=== PATIENT | male | born 1960 | race Caucasian/White ===

== ENCOUNTER 2022-05-03 08:25 | Outpatient (CLI) | payer OTHER, SELFPAY ==
--- NOTE | ~2022-05-03 | US_ITS ---
EXAMINATION: US retroperitoneal duplex ltd DATE: 05/03/2022 09:36 INDICATION: Malignant hypertension TECHNIQUE: Multiple grayscale, color Doppler, and pulsed Doppler images of the kidneys and renal pete aamir were obtained. COMPARISON: None. FINDINGS: The aorta peak systolic velocity is 92 cm/s. There is normal renal contour and echogenicity bilateral ly. The right kidney measures 11.9 x 6.9 x 6.7 cm and the left 1.6 x 6.0 x 5.5 cm. There are no foca l renal lesions identified. There is no hydronephrosis. The right renal artery peak systolic [place] is 201 cm/s in the proximal segment, 182 cm/s in the mid segment, and 121 cm/s in the distal seg ment. The left renal artery peak systolic velocity is 178 cm/s in the proximal segment, 126 cm/s in t he mid segment, and 92 cm/s in the distal segment. IMPRESSION: 1. Elevated peak systolic velocities proximal right renal artery consistent with >50-60% stenosis. P roximal left renal artery borderline for >50-60% stenosis. Reviewed, dictated and finalized at location B. IMPRESSION: 1. Elevated peak systolic velocities proximal right renal artery consistent wi th >50-60% stenosis. Proximal left renal artery borderline for >50-60% stenosis .
== END 2022-05-03 08:26 | disposition home or self-care (01) ==
PROVIDERS: PCP Family Medicine; Visit Provider Internal Medicine Nephrology
DX: I10 Essential (primary) hypertension (principal)
CPT/HCPCS: 93976

== ENCOUNTER → 2023-05-05 16:09 | Outpatient (CLI) | payer MEDICARE, SELFPAY ==
--- NOTE | ~2023-05-05 | XR_ITS ---
EXAM: XR shoulder RT min 2V DATE: 05/05/2023 17:08 HISTORY: M25.511 - Pain in right shoulder . COMPARISON: None available. FINDINGS: Normal mineralization. Old posterior lateral right eighth rib fracture. No acute fracture or dislocation. No lytic or blastic lesion. Mild degenerative change at the glenohumeral joint. Moder ate degenerative change at the AC joint. Amorphous calcification over the biceps anchor. Minimal acro mial tip enthesopathy. No erosion or periosteal change. Soft tissues within normal limits. IMPRESSION: Polyarticular osteoarthritis of the right shoulder. Calcific tendinitis of the biceps anc hor. Reviewed, dictated and finalized at location K. IMPRESSION: Polyarticular osteoarthritis of the right shoulder. Calcific tendin itis of the biceps anchor.
== END ==
PROVIDERS: PCP Family Medicine; Visit Provider Family Medicine
DX: M25.511 Pain in right shoulder (principal); M15.9 Polyosteoarthritis, unspecified; M75.21 Bicipital tendinitis, right shoulder
CPT/HCPCS: 73030

== ENCOUNTER 2023-09-01 00:27 | Day surgery (SDC) | payer OTHER, SELFPAY ==
[2023-08-20 08:45] VITALS: BMI 22.7
--- NOTE | 2023-08-29 09:03 | SUR.PREOP ---
Patient called regarding upcoming procedure. Reviewed preop instructions, appointment times, and procedure prep.
--- NOTE | 2023-08-29 09:08 | SUR.PREOP ---
Patient called regarding upcoming procedure. Reviewed preop instructions, appointment times, and procedure prep. Patient voiced concerns regards his new insurance covering procedure. 906 Called GI doctor's office spoke with Roxana regarding patient's concerns with his [employer] insurance company covering his procedure. Roxana verified with me that they approved his procedure thru [employer] [id number] Called patient back and informed him of my conversation with Roxana. Patient voiced understanding and no other concerns voiced.
--- NOTE | 2023-08-31 10:36 | PM.HPGS ---
History of Present Illness History of Present Illness Consent: Risks, benefits, and alternatives have been discussed and questions answered. Patient agrees to proceed with procedure. Chief complaint: hx of colon polyps Narrative: Gene Whitney is a 63 year old male Was referred for colon cancer screening. He has a history of polyps. Review of Systems Review of Systems: All systems reviewed & are unremarkable except as noted in HPI and below PMFSH Past Medical History Medical History Controlled diabetes mellitus History of colon polyps HLD (hyperlipidemia) HTN (hypertension), benign Smoking history Surgical History Surgical History S/P right knee arthroscopy Family History Family History Mother Breast cancer Father Heart disease Social History Social History Smoking packs per day: 2.5 Smoking cigarettes per day: 50.0 Years smoked: 25 Smoking pack-years: 62.50 Smoking status: Current every day smoker Tobacco type: cigars Second hand tobacco smoke exposure: Yes Smoking end date: 04/19/15 Alcohol intake: current Drinks per week: 12 Alcohol use details: beer Substance use: never Substance use type: does not use Living arrangements: alone Occupation/Education: retired Gender identity (if verbalized by the patient): Male Sexual Orientation (if Verbalized by the Patient): Straight or Heterosexual Spiritual care concerns: No Meds Home Medications and Allergies Home Medications Medication Instructions Recorded Confirmed Type omega-3 fatty acids 1,000 mg 3,000 mg PO DAILY 12/07/19 09/01/23 History capsule (Fish Oil Concentrate) amlodipine 5 mg tablet 5 mg PO DAILY #90 tabs 04/15/23 09/01/23 Rx carvedilol 12.5 mg tablet 12.5 mg PO Q12H #180 tabs 04/15/23 09/01/23 Rx gabapentin 300 mg capsule 300 mg PO QHS #90 caps 04/15/23 09/01/23 Rx glimepiride 1 mg tablet 1 mg PO QAM #90 tabs 04/15/23 09/01/23 Rx hydrochlorothiazide 25 mg tablet 25 mg PO DAILY #90 tabs 04/15/23 09/01/23 Rx rosuvastatin 40 mg tablet 40 mg PO DAILY #90 tabs 04/15/23 09/01/23 Rx aspirin 81 mg tablet 81 mg PO DAILY 08/20/23 09/01/23 History lisinopril 20 mg tablet 20 mg PO BID 08/20/23 09/01/23 History Allergies Allergy/AdvReac Type Severity Reaction Status Date / Time metformin AdvReac Intermediate itchy Verified 09/01/23 06:20 Exam Const: General: alert Orientation/consciousness: patient oriented x3 Resp: Auscultation: clear to auscultation bilaterally Cardio: Rhythm: regular rhythm GI: GI Palp: Yes Soft to palpation and No Tenderness to palpation present (GI) Neuro: General: patient oriented x3 Assessment and Plan Assessment and plan (1) History of colon polyps: Code(s): Z86.010 - Personal history of colonic polyps Status: Acute Assessment and Plan: Colonoscopy with possible biopsy or polypectomy or cautery or injection of substances.
[2023-09-01 06:21] VITALS: BP 167/91; PULSE 73; RESP 18; TEMP 36.4; O2SAT 98
[2023-09-01] MEDS: LACTATED RINGERS 1,000 ML 150 ML IV CONT (06:37)
[2023-09-01 06:40] LABS: Glucose Point of Care 180 mg/dl (65-105)
--- NOTE | 2023-09-01 07:49 | WPDANESEPPF ---
Anes - Initial Pre Proc Eval Procedure: Operation Date: 09/01/23 08:00 Proposed Procedures p Colonoscopy - Michael Das MD Date/Time: 09/01/23 07:49 Surgeon: Michael Das MD Pre Op Diagnosis: hx of colon polyps Patient Data Age: 63 Gender: M Height: 1.8 m Weight: 73.1 kg Last Vital Signs Temp 97.6 F 09/01/23 06:21 Pulse 73 09/01/23 06:21 Resp 18 09/01/23 06:21 BP 167/91 H 09/01/23 06:21 Pulse Ox 98 09/01/23 06:21 O2 Del Method Room Air 09/01/23 06:21 Allergies Allergy/AdvReac Type Severity Reaction Status Date / Time metformin AdvReac Intermediate itchy Verified 09/01/23 06:20 Home Medications Medication Instructions Recorded Confirmed Type omega-3 fatty acids 1,000 mg 3,000 mg PO DAILY 12/07/19 09/01/23 History capsule (Fish Oil Concentrate) amlodipine 5 mg tablet 5 mg PO DAILY #90 tabs 04/15/23 09/01/23 Rx carvedilol 12.5 mg tablet 12.5 mg PO Q12H #180 tabs 04/15/23 09/01/23 Rx gabapentin 300 mg capsule 300 mg PO QHS #90 caps 04/15/23 09/01/23 Rx glimepiride 1 mg tablet 1 mg PO QAM #90 tabs 04/15/23 09/01/23 Rx hydrochlorothiazide 25 mg tablet 25 mg PO DAILY #90 tabs 04/15/23 09/01/23 Rx rosuvastatin 40 mg tablet 40 mg PO DAILY #90 tabs 04/15/23 09/01/23 Rx aspirin 81 mg tablet 81 mg PO DAILY 08/20/23 09/01/23 History lisinopril 20 mg tablet 20 mg PO BID 08/20/23 09/01/23 History Laboratory Tests 09/01/23 06:29 POC Capillary Glucose 180 H mg/dl (65-105) Patient hx anesthesia problems: none Family hx anesthesia problems: none Results Review: All pre-operative results and documents have been reviewed as part of the pre-operative evaluation. [facility] Past Medical History Medical History Controlled diabetes mellitus History of colon polyps HLD (hyperlipidemia) HTN (hypertension), benign Smoking history Surgical History Surgical History S/P right knee arthroscopy Family History Family History Mother Breast cancer Father Heart disease Social History Social History Smoking packs per day: 2.5 Smoking cigarettes per day: 50.0 Years smoked: 25 Smoking pack-years: 62.50 Smoking status: Current every day smoker Tobacco type: cigars Second hand tobacco smoke exposure: Yes Smoking end date: 04/19/15 Alcohol intake: current Drinks per week: 12 Alcohol use details: beer Substance use: never Substance use type: does not use Living arrangements: alone Occupation/Education: retired Gender identity (if verbalized by the patient): Male Sexual Orientation (if Verbalized by the Patient): Straight or Heterosexual Spiritual care concerns: No Anes - Eval Final PreProcedure Day of Procedure 09/01/23 07:49 Patient weight: obese Heart: regular rate and rhythm Lungs: clear to auscultation Airway: Mallampati scale class II Neurological: alert and oriented Last oral intake: >/= 8 hours ASA classification: III Emergent: no Anesthetic plan: proceed Anesthesia type and monitoring: general GIVS and standard monitoring Results Review: All pre-operative results and documents have been reviewed as part of the pre-operative evaluation. Informed Consent: The patient's anesthetic plan and its attendant risks and benefits were discussed with the patient/family/POA. Questions were solicited and answers provided to the satisfaction of the patient/family/POA.
[2023-09-01 08:12] VITALS: BP 128/86; PULSE 71; RESP 26; O2SAT 100
[2023-09-01 08:22] VITALS: BP 150/92; PULSE 62; RESP 20; O2SAT 100
[2023-09-01 08:32] VITALS: BP 154/85; PULSE 55; RESP 20; O2SAT 99
== END 2023-09-01 08:36 | disposition home or self-care (01) ==
PROVIDERS: PCP Family Medicine; Visit Provider Internal Medicine Gastroenterology
PROC: 0DJD8ZZ Inspection of Lower Intestinal Tract, Via Natural or Artificial Opening Endoscopic (ICD-10-PCS; CPT 45378; principal; 2023-09-01 08:00)
DX: Z12.11 Encounter for screening for malignant neoplasm of colon (principal); K57.30 Diverticulosis of large intestine without perforation or abscess without bleeding; K64.8 Other hemorrhoids; I10 Essential (primary) hypertension; E78.5 Hyperlipidemia, unspecified; F17.210 Nicotine dependence, cigarettes, uncomplicated; E11.9 Type 2 diabetes mellitus without complications; E66.9 Obesity, unspecified; Z68.22 Body mass index [BMI] 22.0-22.9, adult; Z96.651 Presence of right artificial knee joint; Z86.010 Personal history of colon polyps; Z80.3 Family history of malignant neoplasm of breast; Z82.49 Family history of ischemic heart disease and other diseases of the circulatory system; Z79.84 Long term (current) use of oral hypoglycemic drugs; Z79.82 Long term (current) use of aspirin
CPT/HCPCS: G0105; 82948; J2704; J7120

== ENCOUNTER 2024-04-03 11:31 | Emergency (ER) | payer OTHER, SELFPAY ==
[2024-04-03 11:39] VITALS: BP 160/101; PULSE 92; RESP 18; TEMP 36.5; O2SAT 96
--- NOTE | 2024-04-03 13:01 | ED.ALLEREA ---
HPI - Allergic Reaction General Chief complaint: Allergic Reaction Stated complaint: hand swelling after wasp sting Time Seen by Provider: 04/03/24 12:13 History of Present Illness HPI narrative: 64-year-old male present to the emergency department for evaluation of swelling of his left hand. Patient reports he was bitten by a wasp yesterday. Patient states immediately the left hand swelled up. Patient does have prior history of was bites but has never had allergic reaction. Patient denies any chest pain shortness of breath difficulty breathing difficulty swallowing or swelling of the face tongue or airway. Patient did not take any the for the suspected allergic reaction. Related Data Home Medications Medication Instructions Recorded Confirmed omega-3 fatty acids 1,000 mg 3,000 mg PO DAILY 12/07/19 12/11/23 capsule (Fish Oil Concentrate) aspirin 81 mg tablet 81 mg PO DAILY 08/20/23 12/11/23 lisinopril 20 mg tablet 20 mg PO BID 08/20/23 12/11/23 Allergies Allergy/AdvReac Type Severity Reaction Status Date / Time metformin AdvReac Intermediate itchy Verified 04/03/24 11:32 Review of Systems Review of Systems: All systems reviewed & are unremarkable except as noted in HPI and below PMFSH Past Medical History Medical History Controlled diabetes mellitus History of colon polyps HLD (hyperlipidemia) HTN (hypertension), benign Smoking history Surgical History Surgical History S/P right knee arthroscopy Family History Family History Mother Breast cancer Father Heart disease Social History Social History Smoking packs per day: 2.5 Smoking cigarettes per day: 50.0 Years smoked: 25 Smoking pack-years: 62.50 Smoking status: Current every day smoker Tobacco type: cigars Second hand tobacco smoke exposure: Yes Smoking end date: 04/19/15 Alcohol intake: current Drinks per week: 12 Alcohol use details: beer Substance use: never Substance use type: does not use Living arrangements: alone Occupation/Education: retired Gender identity (if verbalized by the patient): Male Sexual Orientation (if Verbalized by the Patient): Straight or Heterosexual Spiritual care concerns: No Exam Narrative: APPEARANCE: Well appearing, no pain, no distress, well-nourished. HEAD: normocephalic, atraumatic. EYES: PERRLA/EOMI, conjunctivae clear. NOSE: Normal no drainage EARS:TMS clear with good light reflex. THROAT: Pharynx clear, no exudate. NECK: Supple. No adenopathy, no masses. RESPIRATORY: Airway patent, respirations nonlabored. Clear to auscultation bilaterally, no rales, rhonchi, wheezing. CARDIOVASCULAR: Regular rate and rhythm without murmurs rubs or gallops. ABDOMINAL: Soft, nontender, nondistended, normal bowel sounds MUSCULOSKELETAL: Left hand swelling NEURO: Alert. Cranial nerves II through XII intact. Good gait. Good coordination SKIN: Warm, dry. Normal Color Course Vital Signs Vital signs: Vital Signs Temperature 97.7 F 04/03/24 11:39 Pulse Rate 92 04/03/24 11:39 Respiratory Rate 18 04/03/24 11:39 Blood Pressure 160/101 H 04/03/24 11:39 Pulse Oximetry 96 04/03/24 11:39 Oxygen Delivery Room Air 04/03/24 11:39 Temperature 97.7 F 04/03/24 11:39 Pulse Rate 77 04/03/24 13:25 Respiratory Rate 18 04/03/24 13:25 Blood Pressure 148/88 H 04/03/24 13:25 Pulse Oximetry 97 04/03/24 13:25 Oxygen Delivery Room Air 04/03/24 11:39 MDM - Allergic Reaction MDM Narrative Medical decision making narrative: 64-year-old male presenting ED for evaluation for swelling of the left his secondary to a wasp sting. This appears to be allergic reaction, low suspicion for cellulitis or infectious etiology. Patient has strong cap refill and strong pulses. No facial or oral airwa
[2024-04-03] MEDS: diphenhydrAMINE HCl CAP 25 MG CAPSULE 50 MG PO (13:08)
[2024-04-03] MEDS: predniSONE 20 MG TABLET 40 MG PO (13:08)
[2024-04-03 13:25] VITALS: BP 148/88; PULSE 77; RESP 18; O2SAT 97
== END 2024-04-03 13:26 | disposition home or self-care (01) ==
PROVIDERS: Emergency Provider Emergency Medicine; PCP Family Medicine
DX: T63.461A Toxic effect of venom of wasps, accidental (unintentional), initial encounter (principal); I10 Essential (primary) hypertension; E11.9 Type 2 diabetes mellitus without complications; E78.5 Hyperlipidemia, unspecified; Z86.010 Personal history of colon polyps; Z87.891 Personal history of nicotine dependence; Z79.82 Long term (current) use of aspirin; Z79.84 Long term (current) use of oral hypoglycemic drugs; Z79.899 Other long term (current) drug therapy
CPT/HCPCS: 99283; A9270; J7512

== ENCOUNTER 2024-04-13 13:30 | Outpatient (CLI) | payer OTHER, SELFPAY ==
--- NOTE | ~2024-04-13 | CT_ITS ---
CT of the Abdomen and Pelvis: Indication: Abdominal pain Technique: 2.5 mm axial scans were obtained through the abdomen and pelvis following intravenous adm inistration of 100 cc of Omnipaque 350. Dose reduction technique was used on this scan by utilizing a utomated exposure control and iterative reconstruction technique. The dose-length product (DLP) was 4 99.92 mGy-cm. Findings: Scans through the lung bases are unremarkable. The liver, spleen, pancreas, gallbladder, and kidneys are within normal limits. There are bilateral i ndeterminate adrenal nodules, measuring 1.8 cm and the left adrenal gland, and 1.1 cm right adrenal l esion. There are atherosclerotic calcifications of the aorta. No lymphadenopathy. No bowel obstruction or bowel wall thickening. Left inguinal hernia contains a focal portion of the s igmoid colon.. Images through the pelvis were performed. Urinary bladder unremarkable. Prostate gland mildly enlarge d. No ascites. Small bilateral hydroceles noted. Impression: Left inguinal hernia contains a focal portion of the sigmoid colon. No bowel obstruction or bowel wal l thickening. Indeterminate bilateral adrenal glands, 1.8 cm and the left, and 1.1 cm and the right. Consider follo w-up MR to confirm adenomas. Reviewed, dictated and finalized at location . Impression: Left inguinal hernia contains a focal portion of the sigmoid colon. No bowel ob struction or bowel wall thickening. Indeterminate bilateral adrenal glands, 1.8 cm and the left, and 1.1 cm and the right. Consider follow-up MR to confirm adenomas.
== END 2024-04-13 13:31 | disposition home or self-care (01) ==
PROVIDERS: PCP Family Medicine; Visit Provider Physician Assistant
DX: R10.32 Left lower quadrant pain (principal); K40.90 Unilateral inguinal hernia, without obstruction or gangrene, not specified as recurrent
CPT/HCPCS: 74177; Q9967

== ENCOUNTER 2024-06-28 08:24 | Outpatient (CLI) | payer OTHER, SELFPAY ==
--- NOTE | 2024-06-28 08:39 | ECG_ITS ---
Test Date: 2024-06-28 08:57:28 Measurements Intervals [place] Rate: 71 P: 58 MI: 168 QRS: -16 QRSD: 93 T: 53 QT: 391 QTc: 428 Interpretive Statements SINUS RHYTHM INCOMPLETE RIGHT BUNDLE BRANCH BLOCK BASELINE ARTIFACT- I, II, III, AVR, AVL BORDERLINE ECG No previous ECG available for comparison Electronically Signed On 06-28-2024 10:42:00 CDT by Wero Smith D.O.
[2024-06-28 09:34] LABS: Anion Gap 9 mmol/L (4-12); Blood Urea Nitrogen 13 mg/dL (9-20); Calcium 9.2 mg/dL (8.4-10.2); Carbon Dioxide 31 mmol/L (22-30); Chloride 94 mmol/L (98-107); Estimated Glomerular Filt Rate > 60; Glucose 232 mg/dL (65-110); Sodium 134 mmol/L (137-145)
== END 2024-06-28 08:25 | disposition home or self-care (01) ==
PROVIDERS: Anesthesiology; PCP Family Medicine; Visit Provider Surgery
DX: Z01.818 Encounter for other preprocedural examination (principal); I45.10 Unspecified right bundle-branch block; E11.9 Type 2 diabetes mellitus without complications; E78.5 Hyperlipidemia, unspecified; I10 Essential (primary) hypertension; K40.90 Unilateral inguinal hernia, without obstruction or gangrene, not specified as recurrent
CPT/HCPCS: 36415; 80048; 86850; 86900; 86901; 93005

== ENCOUNTER 2024-06-29 00:09 | Day surgery (SDC) | payer OTHER, SELFPAY ==
[2024-06-23 10:23] VITALS: BMI 22.8
--- NOTE | 2024-06-23 10:31 | PC.NURSE ---
Report to the Outpatient Waiting Room, entrance under the green pavilion located off [facility], at time _0830_ on date _[id number]_. Planned Procedure Time: _1030_.? Time changes happen often and if your time is changed the preop area will call you the afternoon before. - You and your visitor will be asked to self-screen and do not enter if you have any COVID symptoms. Please call surgeon if you need to reschedule. - A mask is optional within the hospital at this time. Patients may have clear liquids (water, carbonated beverages, clear teas, apple juice) until 3 hours prior to surgery with a maximum of 20 ounces. - No food from midnight until time of surgery and no smoking Take only the following medications with a SIP of water on the morning of surgery: ___Carvidilol DO NOT STOP ANY OF YOUR OTHER PRESCRIPTION MEDICATIONS PRIOR TO SURGERY EXCEPT THE FOLLOWING Medications to discontinue per physician ____Fish oil Date to take last odio__[id number] Please no make-up, nail amharic, hairspray, perfume, deodorant, or body powder the day of surgery.? No jewelry (including any body piercings) or valuables the day of surgery, leave them at home.? Please take a shower or bath the night before, or the morning of, surgery with an antibacterial soap.? Wear comfortable, loose fitting clothing.? - Jewelry must be removed prior to entering the operating room.? Rings and piercings that are not removed may be cut off. - The hospital will not accept responsibility for valuables.? - Please leave all valuables, including medications, at home the day of surgery. If you are going home after surgery, a licensed bus driver must drive you home.? - NO public transportation without another adult if you receive anesthesia. - We recommend that an adult stay with you for 24 hours following discharge. - We also recommend that you do not drive, make important decision, drink alcoholic beverages, or take any drugs that were not prescribed by your health care provider for at least 24 hours after your discharge time. Follow any additional instructions given to you from your surgeon. Telephone instructions given to __Mike__and asked if any additional questions and then verbalized understanding. Patient advised to call surgeon office or pre surgery nurse liaison [phone] if any additional questions.
[2024-06-29] VITALS (11 sets, daily range): BP systolic 113–177; BP diastolic 61–84; PULSE 64–84; RESP 14–20; TEMP 36.2–36.3; O2SAT 96–100
[2024-06-29] MEDS: ACETAMINOPHEN 500 MG TABLET 1000 MG PO (08:50)
[2024-06-29] MEDS: LACTATED RINGERS 1,000 ML 30 ML IV CONT ×2 (09:00→12:20)
[2024-06-29 09:03] LABS: Glucose Point of Care 205 mg/dl (65-105)
[2024-06-29] MEDS: KETOROLAC 15 MG/ML VIAL (*BKC) IV PUSH (09:47)
--- NOTE | 2024-06-29 10:28 | WPDANESEPPF ---
Anes - Initial Pre Proc Eval Procedure: Operation Date: 06/29/24 10:30 Proposed Procedures p Laparoscopic Left Inguinal Hernia Repair with Mesh, Davinci Assisted - Himanshu Barron DO Date/Time: 06/29/24 10:28 Surgeon: Himanshu Barron DO Pre Op Diagnosis: Left Inguinal Hernia Patient Data Age: 64 Gender: M Height: 1.78 m Weight: 72.8 kg Last Vital Signs Temp 36.3 C L 06/29/24 09:44 Pulse 64 06/29/24 09:44 Resp 16 06/29/24 09:44 BP 177/84 H 06/29/24 09:44 Pulse Ox 100 06/29/24 09:44 O2 Del Method Room Air 06/29/24 09:44 Allergies Allergy/AdvReac Type Severity Reaction Status Date / Time metformin AdvReac Intermediate Other Verified 06/29/24 08:42 Home Medications Medication Instructions Recorded Confirmed Type omega-3 fatty acids 1,000 mg 3,000 mg PO DAILY 12/07/19 06/29/24 History capsule (Fish Oil Concentrate) aspirin 81 mg tablet 81 mg PO DAILY 08/20/23 06/29/24 History carvedilol 12.5 mg tablet 12.5 mg PO Q12H #180 tabs 01/19/24 06/29/24 Rx rosuvastatin 40 mg tablet 40 mg PO DAILY #90 tabs 04/12/24 06/29/24 Rx lisinopril 20 mg tablet 20 mg PO BID #180 tabs 05/10/24 06/29/24 Rx hydrochlorothiazide 25 mg tablet 25 mg PO DAILY #90 tabs 06/04/24 06/29/24 Rx gabapentin 300 mg capsule 300 mg PO QHS #90 caps 06/15/24 06/29/24 Rx glimepiride 1 mg tablet 1 mg PO QAM #90 tabs 06/15/24 06/29/24 Rx Laboratory Tests 06/29/24 09:01 POC Capillary Glucose 205 H mg/dl (65-105) Patient hx anesthesia problems: none Family hx anesthesia problems: none Results Review: All pre-operative results and documents have been reviewed as part of the pre-operative evaluation. [facility] Past Medical History Medical History Controlled diabetes mellitus History of colon polyps HLD (hyperlipidemia) HTN (hypertension), benign Smoking history Surgical History Surgical History S/P right knee arthroscopy Family History Family History Mother Breast cancer Father Heart disease Social History Social History Smoking packs per day: 2.5 Smoking cigarettes per day: 50.0 Years smoked: 25 Smoking pack-years: 62.50 Smoking status: Current some day smoker Tobacco type: cigars Second hand tobacco smoke exposure: Yes Smoking end date: 04/19/15 Additional smoking assessment comments: cigar twice a month Alcohol intake: current Drinks per week: 17 Alcohol use details: beer Substance use: never Substance use type: does not use Living arrangements: with family Occupation/Education: retired Gender identity (if verbalized by the patient): Male Sexual Orientation (if Verbalized by the Patient): Straight or Heterosexual Spiritual care concerns: No Anes - Eval Final PreProcedure Day of Procedure 06/29/24 10:28 Patient weight: normal and overweight Heart: regular rate and rhythm Lungs: decreased breath sounds Airway: Mallampati scale class II Neurological: alert and oriented Last oral intake: >/= 8 hours ASA classification: III Emergent: no Anesthetic plan: proceed Anesthesia type and monitoring: general ETT and standard monitoring Results Review: All pre-operative results and documents have been reviewed as part of the pre-operative evaluation. Informed Consent: The patient's anesthetic plan and its attendant risks and benefits were discussed with the patient/family/POA. Questions were solicited and answers provided to the satisfaction of the patient/family/POA.
--- NOTE | 2024-06-29 10:38 | PM.IMHP ---
H&P: HPI History of Present Illness Date/Time: 06/29/24 10:38 Chief Complaint: Left inguinal hernia Narrative: This is a 64-year-old man who presents for left inguinal hernia repair. He denies any changes since last seen in the office. Review of Systems Review of Systems: All systems reviewed & are unremarkable except as noted in HPI and below Constitutional: Constitutional: Denies chills, Denies fever(s), Denies headache(s) and Denies weight loss Eyes: Eyes: Denies change in vision ENT: Denies dizziness, Denies headache(s), Denies neck mass and Denies throat swelling Cardiovascular: Cardiovascular: Denies chest pain, Denies lightheadedness and Denies dyspnea Respiratory: Respiratory: Denies cough, Denies dyspnea and Denies wheezing Gastrointestinal: Gastrointestinal: Denies abdominal pain, Denies change in bowel habits, Denies nausea and Denies vomiting Genitourinary: Genitourinary: Denies hematuria and Denies dysuria Musculoskeletal: Musculoskeletal: Reports as per HPI Integumentary/Breasts: Skin/Breast: Reports as per HPI Neurologic: Denies dizziness and Denies headache(s) Allergic/Immunologic: Allergic/Immunologic: Denies throat swelling and Denies wheezing PMFSH Past Medical History Medical History Controlled diabetes mellitus History of colon polyps HLD (hyperlipidemia) HTN (hypertension), benign Smoking history Surgical History Surgical History S/P right knee arthroscopy Family History Family History Mother Breast cancer Father Heart disease Social History Social History Smoking packs per day: 2.5 Smoking cigarettes per day: 50.0 Years smoked: 25 Smoking pack-years: 62.50 Smoking status: Current some day smoker Tobacco type: cigars Second hand tobacco smoke exposure: Yes Smoking end date: 04/19/15 Additional smoking assessment comments: cigar twice a month Alcohol intake: current Drinks per week: 17 Alcohol use details: beer Substance use: never Substance use type: does not use Living arrangements: with family Occupation/Education: retired Gender identity (if verbalized by the patient): Male Sexual Orientation (if Verbalized by the Patient): Straight or Heterosexual Spiritual care concerns: No Meds Home Medications and Allergies Home Medications Medication Instructions Recorded Confirmed Type omega-3 fatty acids 1,000 mg 3,000 mg PO DAILY 12/07/19 06/29/24 History capsule (Fish Oil Concentrate) aspirin 81 mg tablet 81 mg PO DAILY 08/20/23 06/29/24 History carvedilol 12.5 mg tablet 12.5 mg PO Q12H #180 tabs 01/19/24 06/29/24 Rx rosuvastatin 40 mg tablet 40 mg PO DAILY #90 tabs 04/12/24 06/29/24 Rx lisinopril 20 mg tablet 20 mg PO BID #180 tabs 05/10/24 06/29/24 Rx hydrochlorothiazide 25 mg tablet 25 mg PO DAILY #90 tabs 06/04/24 06/29/24 Rx gabapentin 300 mg capsule 300 mg PO QHS #90 caps 06/15/24 06/29/24 Rx glimepiride 1 mg tablet 1 mg PO QAM #90 tabs 06/15/24 06/29/24 Rx Allergies Allergy/AdvReac Type Severity Reaction Status Date / Time metformin AdvReac Intermediate Other Verified 06/29/24 08:42 Vital Signs Vital Signs - 24 hr 06/29/24 09:44 Temperature 36.3 C L Pulse Rate 64 Respiratory Rate 16 Blood Pressure 177/84 H Pulse Oximetry 100 Oxygen Delivery Room Air Exam Const: General: no acute distress and alert Orientation/consciousness: patient oriented x3 HENMT: Head: normocephalic and atraumatic Ears: hearing grossly normal bilaterally Face/Nose/Sinus: Normal nares present Mouth: Yes Normal oral and palatal mucosa present Eyes: Periorbital: periorbital findings normal Sclera: sclerae normal EOM: EOMs intact bilaterally Neck: Neck: normal visual inspection, no lymphadenopathy and trachea midline Chest: Chest palpation & ins
--- NOTE | 2024-06-29 10:57 | WPDHPUPDATE1 ---
History and Physical Update Update Date/Time: 06/29/24 10:57 History and Physical has been reviewed, including an updated exam of the patient. There are NO changes in the patient's condition. Risks, benefits, and alternatives have been discussed and questions answered. Patient agrees to proceed with procedure.
[2024-06-29] MEDS: ceFAZolin 2 GM/D5W 50 ML 2 GM/50 ML BAG IVPB (11:05)
[2024-06-29] MEDS: BUPIVACAINE/EPINEPHRINE 0.5% 10 ML VIAL 30 ML INFILTRATE (11:43)
[2024-06-29 12:27] LABS: Glucose Point of Care 197 mg/dl (65-105)
--- NOTE | 2024-06-29 12:33 | W.PM.PROC2 ---
Procedure Note - Detailed Date of Procedure 06/29/24 Pre-op Diagnosis Left Inguinal Hernia Post-op Diagnosis Same (Indirect LIH) Procedure Performed Laparoscopic left inguinal hernia repair with mesh, da Cat assisted Surgeon Himanshu Barron, DO Anesthesia General and Local (0.5% bupivacaine with epinephrine) Indications This is a 64-year-old man who presents with a left groin bulge that he 1st noticed about 2 months ago. He noticed a knot that he could push back in. He has some discomfort and pain when coughing. He was found to have a reducible left inguinal hernia on exam. Discussions were made with the patient about treatment options and decision was made to proceed with robotic assisted laparoscopic left inguinal hernia repair with mesh. Findings Robotic assisted laparoscopic left inguinal hernia repair was performed. The patient was found to have an indirect left inguinal hernia defect. There was no evidence of a right inguinal hernia. A robotic transabdominal preperitoneal approach was utilized for repair. Once a wide enough preperitoneal pocket was created and the hernia sac was reduced, I then placed a large left 3DMax mid mesh overlying the entire myopectineal orifice. No specimens were obtained for pathology. Description of Procedure Procedure as well as risks, benefits, and alternatives were discussed with the patient. Written consent was obtained and placed in chart prior to procedure. Patient was brought back to surgical suite. He was placed supine on operating table. Time-out was done to confirm patient and procedure. He was then intubated by Anesthesia Department. His abdomen was prepped and draped in sterile fashion using chlorhexidine prep. 0.5% bupivacaine with epinephrine was infiltrated at each location for incision. An 8 mm incision was made in the left lateral abdomen, and a 5 mm Optiview trocar was advanced through the abdominal layers under direct visualization. Once inside the abdominal cavity, carbon dioxide insufflation was used to create a pneumoperitoneum. A camera was inserted and the abdominal cavity was inspected. The patient was placed in slight Trendelenburg position. An 8 millimeter incision was made on the right lateral abdomen and an 8 millimeter trocar was inserted under direct visualization. Another 8 millimeter incision was made just superior to the umbilicus and an 8 millimeter trocar was inserted under direct visualization. The 5 mm port was then removed and this was replaced with another 8 mm robotic port. The robotic arms were brought up to the patient's bedside and secured to the ports. The camera and instruments were inserted. I then moved over to the robotic console and took control of the camera and instruments. After careful inspection of the abdominal cavity, I began scoring the peritoneum along the left lower quadrant using scissors with electrocautery. The preperitoneal plane was entered and this was carefully dissected caudally along the inferior epigastric vessels. Careful dissection with scissors with electrocautery and blunt dissection was used to continue this dissection. I dissected far enough laterally to allow for mesh placement, and also dissected medially to identify the pubic arch and Lino's ligament. The hernia sac was identified and carefully dissected posteriorly. The cord contents were also identified and the peritoneum was carefully dissected far enough posteriorly to allow for mesh placement. Once an adequate pocket was created, I then placed the mesh within the preperitoneal pocket and carefully unfolded it. The mesh was centered on the hernia defect with adequate overlap circumferentially. The inferior edge of the mesh was inspected to ensure that it was far enough away from the peritoneal edge. The mesh appeared in proper position overlying the entire myopectineal orifice. The mesh was secured using 3-0 Vicryl simple interrupted sutures in Lino's ligament, the super
[2024-06-29] MEDS: fentaNYL CITRATE INJ (*CRX) 100 MCG/2 ML VIAL 25 MCG IV PUSH (13:40)
[2024-06-29] MEDS: oxyCODONE HCL (*CRX) 5 MG TAB IR PO (13:42)
== END 2024-06-29 15:05 | disposition home or self-care (01) ==
PROVIDERS: PCP Family Medicine; Visit Provider Surgery
PROC: 8E0Y4CZ Robotic Assisted Procedure of Lower Extremity, Percutaneous Endoscopic Approach (ICD-10-PCS; CPT 49650; principal; 2024-06-29 10:30)
DX: K40.90 Unilateral inguinal hernia, without obstruction or gangrene, not specified as recurrent (principal); I10 Essential (primary) hypertension; E78.5 Hyperlipidemia, unspecified; E11.9 Type 2 diabetes mellitus without complications; Z79.84 Long term (current) use of oral hypoglycemic drugs; Z79.82 Long term (current) use of aspirin; Z72.0 Tobacco use
CPT/HCPCS: 49650; S2900; 36415; 80048; 82948; 86850; 86900; 86901; 93005; A9270; C1781; J0360; J0690; J1885; J2250; J2405; J2704; J3010; J7030; J7120

== ENCOUNTER 2024-07-23 08:32 | Outpatient (CLI) | payer OTHER, SELFPAY ==
--- NOTE | ~2024-07-23 | XR_ITS ---
EXAMINATION: XR lumbar spine min 4V DATE: 07/23/2024 08:53 INDICATION: Right-sided sciatica. Pain in right leg. TECHNIQUE: 5 views of lumbar spine were obtained. COMPARISON: CT abdomen and pelvis 04/13/2024 FINDINGS: There is 3 degrees dextrocurvature lumbar spine. There is 3 mm anterolisthesis of L4 on L5. There is mild chronic anterior wedging of T12 and L1 vertebral bodies. There is mildly decreased dis c height at L3-L4, moderately decreased disc height at L4-L5, and severely decreased disc at L5-S1. T here is multilevel facet joint osteoarthritis, severe in lower lumbar spine. IMPRESSION: 1. Severe lumbar spondylosis. Reviewed, dictated and finalized at location A.
== END 2024-07-23 08:33 | disposition home or self-care (01) ==
PROVIDERS: PCP Family Medicine; Visit Provider Physician Assistant
DX: M47.816 Spondylosis without myelopathy or radiculopathy, lumbar region (principal); M79.604 Pain in right leg; M54.31 Sciatica, right side
CPT/HCPCS: 72110

== ENCOUNTER 2024-09-06 10:02 | Outpatient (CLI) | payer OTHER, SELFPAY ==
--- NOTE | ~2024-09-06 | CT_ITS ---
EXAMINATION: CT lumbar spine wo con DATE: 09/06/2024 10:23 INDICATION: Lumbar spondylosis without myelopathy or radiculopathy. TECHNIQUE: Computed tomography (CT) of the lumbar spine was performed without intravenous contrast. A utomated exposure control and iterative reconstruction technique were employed. The dose-length produ ct was 398.36 mGy-cm. COMPARISON: Lumbar spine radiographs 07/23/2024 FINDINGS: There is 4 degrees dextrocurvature of lumbar spine. There is 4 mm anterolisthesis of L4 on L5. There is mild chronic anterior wedging of T12 vertebral body. There is mildly decreased disc heig ht at T12-L1 and L3-L4, moderately decreased disc height at L4-5, and severely decreased disc height at L5-S1. The following disc levels are specifically discussed: L1-L2: The disc is bulging. There is severe right and mild left facet joint osteoarthritis. There is mild bilateral neural foraminal stenosis. There is mild central canal stenosis. L2-L3: The disc is bulging. There is mild bilateral facet joint osteoarthritis. There is mild bilater al neural foraminal stenosis. There is mild central canal stenosis. L3-L4: The disc is bulging. There is severe bilateral facet joint osteoarthritis. There is mild bilat eral neural foraminal stenosis. There is mild central canal stenosis. L4-L5: The disc is bulging. There is severe bilateral facet joint osteoarthritis. There is moderate b ilateral neural foraminal stenosis. There is moderate central canal stenosis. L5-S1: The disc is bulging. There is severe bilateral facet joint osteoarthritis. There is moderate b ilateral neural foraminal stenosis. There is mild central canal stenosis. IMPRESSION: 1. Severe lumbar spondylosis. Reviewed, dictated and finalized at location A. ECTIONAL OFFICER CHIEF
== END 2024-09-06 10:03 | disposition home or self-care (01) ==
LOC: ANHIMG 10:08
PROVIDERS: PCP Family Medicine; Visit Provider Physician Assistant
DX: M47.816 Spondylosis without myelopathy or radiculopathy, lumbar region (principal)
CPT/HCPCS: 72131

== ENCOUNTER 2024-12-28 13:27 | Outpatient (CLI) | payer OTHER, SELFPAY ==
--- NOTE | ~2024-12-28 | XR_ITS ---
XR knee RT 3V Ordering provider: Tim Bansal MD History: . M25.561 - Pain in right knee . Comparison: None. FINDINGS: BONES: No acute fracture or dislocation. JOINT SPACES: Slight narrowing of the lateral compartment. SOFT TISSUES: Normal. IMPRESSION: No acute osseous abnormality right knee. Mild osteoarthritic changes. Reviewed, dictated and finalized at location A.
--- NOTE | ~2024-12-28 | XR_ITS ---
XR hip RT min 2V Ordering provider: Tim Bansal MD History: . M25.551 - Pain in right hip . Comparison: None. FINDINGS: BONES: No acute fracture or dislocation. HIP JOINT SPACES: Normal. SACROILIAC JOINT SPACES/LUMBAR SPINE: The sacroiliac joint spaces are normal. Mild degenerative mehta es of the visualized lower lumbar spine. PUBIC SYMPHYSIS: Normal. SOFT TISSUES: Normal. IMPRESSION: No acute osseous abnormality pelvis and right hip. Reviewed, dictated and finalized at location A.
--- OUTSIDE RECORDS SUMMARY | 2024-12-28 15:02 | XMS_ITS | CONTINUITY OF CARE DOCUMENT ---
Author Name uli mcnally Address Unknown Organization [facility] Address [address] [place] [address] [address] [place] [address] Phone [phone] Care Team Providers Care Outdoor Recreation Specialist Name Role Phone uli mcnally Unavailable Unavailable
--- OUTSIDE RECORDS SUMMARY | 2024-12-28 15:02 | XMS_ITS | Clinical Summary ---
Author Organization [facility] Address [address] [place] [address] Care Team Providers Care Launderer Hand Name Role Phone Jean Paul Mcdaniel MD Primary Care Provider [phone] Social History Tobacco Use Types Packs/Day Years Used Date Smoking Tobacco: Never Assessed Sex and Gender Information Value Date Recorded Sex Assigned at Not on file Legal Sex Male 8:44 AM CDT Gender Identity Not on file Sexual Orientation Not on file Plan of Treatment Health Maintenance Due Date Last Done Comments Colorectal Cancer Screening Colonoscopy (10 Years) 1958 Hepatitis C 01/28/1976 DTaP, Tdap and Td Vaccines ( 1 - Tdap) 1977 Zoster Vaccines (1 of 2) 01/28/2008 Annual Medicare Wellness Visit 2023 Pneumococcal Vaccine: 65+ Ye ars (1 of 1 - PCV) 2023 COVID-19 Vaccine ( - 2023-2 5 season) 2024 Influenza Adult (#1) 2024 RSV Immunization or 60+ Years (1 - 1-dose 75+ series) 2033 Meningococcal B Vaccine Aged Out No l onger eligible based on patient's age to complete this topic Meningococcal Vaccine Aged Out No emma katerina eligible based on patient's age to complete this topic RSV Immunizations Under 20 Months Aged Out No longer eligible based on patient's age to complete this topic Insurance E[employer]ENCE Care Teams Launderer Hand Relationship Specialty Start Date End Date Jean Paul Mcdaniel MD [address] [place] [address] PCP - General FAMILY PRACTICE 06/17/24
--- OUTSIDE RECORDS SUMMARY | 2024-12-28 15:02 | XMS_ITS | Clinical Summary ---
Author Organization [facility] Address [address] [place] [address] Phone Care Team Providers Care Zinc Plater Name Role Phone Jean Paul Mcdaniel MD Primary Care Provider [phone] Allergies Active Allergy Reactions Criticality Noted Date Comments Metformin Hives 02/17/2022 Medications Medication Sig Dispensed Refills Start Date End Date Status fish oil-omega-3 fatty acids 1000 MG capsule Take 1 g by mouth 1 (one) time each day Active SITagliptin (JANUVIA) 25 MG tablet Take 25 mg by mouth 1 (one) time each day Active amLODIPine (NORVASC) 5 MG tablet Take 5 mg by mouth 1 (one) time each day Active hydroCHLOROthiazide (HYDRODIURIL) 25 MG tablet Take 25 mg by mouth 1 (one) time each day Active carvedilol (COREG) 12.5 MG tablet Take 12.5 mg by mouth 2 (two) times a day with meals Active gabapentin (NEURONTIN) 300 MG capsule Take 300 mg by mouth every night Active glimepiride (AMARYL) 1 MG tablet Take 1 mg by mouth 1 (one) time each day before breakfast Active rosuvastatin (CRESTOR) 40 MG tablet Take 40 mg by mouth 1 (one) time each day Active lisinopril (PRINIVIL) 20 MG tablet Take 20 mg by mouth 2 (two) times a day Active Active Problems Problem Noted Date Diagnosed Date Smoker 02/17/2022 Hypertension 02/17/2022 Hyperlipidemia 02/17/2022 Diabetes mellitus 02/17/2022 Family History Medical History Relation Comments Heart disease Father Breast cancer Mother Relation Status Comments Father Mother Social History Tobacco Use Types Packs/Day Years Used Date Smoking Tobacco: Some Days Cigarettes 2.5 25 Cigars Smokeless Tobacco: Never Tobacco Cessation:Ready to Q uit: No; Counseling Given: Yes Alcohol Use Standard Drinks/Week Comments Yes 15 (1 standard drink = 0.6 oz pu re alcohol) Sex and Gender Information Value Date Recorded Sex Assigned at Not on file Gender Identity Not on file Sexual Orientation Not on file Last Filed Vital Signs Vital Sign Reading Time Taken Comments Blood Pressure 138/78 05/30/2022 10:45 AM CDT Pulse - - Temperature 36.4 C (97.6 F) 05/30/2022 10:45 AM CDT Respiratory Rate 18 05/30/2022 10:45 AM CDT Oxygen Saturation - - Inhaled Oxygen Concentration - - Weight 72.6 kg (160 lb) 05/30/2022 10:45 AM CDT Height 175.3 cm (5' 9 ) 05/30/2022 10:45 AM CDT Body Mass Index 23.63 05/30/2022 10:45 AM CDT Plan of Treatment Health Maintenance Due Date Last Done Comments Pneumococcal PPSV23/PCV13 65 + Years / Low and Medium Risk (1 of 4 - PCV) 2023 Influenza Vaccine (#1) 2024 Care Teams Zinc Plater Relationship Specialty Start Date End Date Jean Paul Mcdaniel MD [address] [facility] [address] [place] [address] PCP - General Internal Medicine 12/18/21
== END 2024-12-28 13:28 | disposition home or self-care (01) ==
PROVIDERS: PCP Physician Assistant; Visit Provider Neurological Surgery
DX: M17.11 Unilateral primary osteoarthritis, right knee (principal); M25.551 Pain in right hip
CPT/HCPCS: 73502; 73562

== ENCOUNTER 2025-01-17 08:40 | Outpatient (CLI) | payer OTHER, SELFPAY ==
[2025-01-12 11:06] VITALS: BMI 24.0
--- NOTE | 2025-01-12 11:06 | PC.NURSE ---
Pre Radiology instructions Report to the outpatient isabella thurston on date __01/17/25___ at time _0900am for procedure Time: 1100am____ YOU MAY BE MONITORED AT HOSPITAL FOR UP TO 4 HOURS AFTER YOUR PROCEDURE. A visitor will be allowed to accompany the patient into the hospital. You and your visitor will be asked to self-screen and do not enter if you have any COVID symptoms. A mask is OPTIONAL within the hospital. Patients are to have no food or drink 6 hours prior to procedure time Driving will be restricted after the procedure, you must have a person to drive you home. Labs will be drawn in preop area and once reviewed, you will be taken to radiology area for procedure. When the procedure is completed, you will be taken to outpatient where you will be monitored for several hours. You may have one visitor in this area. Other than holding anti-coagulants, patient may take other medication(s) as scheduled. Prior to your appointment date patients are instructed to hold anti-coagulants after discussing with ordering provider to stop. If unable to discontinue anti-coagulants please notify radiologist. ? No aspirin or warfarin (Coumadin) for 7 days prior to the procedure. ? No clopidogrel (Plavix), ticagrelor (Brilinta), prasugrel (Effient) or dabigatran (Pradaxa) for 5 days prior to the procedure. ? No rivaroxaban (Xarelto), apixaban (Eliquis), dipyridamole (Aggrenox or Persantine) or cilostazol (Pletal) for 2 days prior to the procedure. Medications to discontinue per physician: __Aspirin for 7 days prior Date to take last dose: ___01/08/25 Please leave all valuables, including medications, at home the day of procedure. The hospital will not accept responsibility for valuables. Wear comfortable, loose fitting clothing.? Follow any additional instructions given to you from ordering provider. Telephone instructions given to ___Patient and asked if any additional questions and then verbalized understanding. Patient advised to call scheduling provider office or registration scheduling [phone] if any additional questions.
[2025-01-17] VITALS (9 sets, daily range): BP systolic 127–152; BP diastolic 66–82; PULSE 55–62; RESP 16–18; TEMP 36.2; O2SAT 97–100; BMI 25.4
--- NOTE | ~2025-01-17 | XR_ITS ---
EXAMINATION: 1. CT lumbar spine w con 2. XR myelogram spine lumbosacral DATE: 01/17/2025 10:39 INDICATION: Spondylolisthesis, lumbar region. TECHNIQUE: The procedure including the risks, benefits, and alternatives was discussed with the patie nt. Risks discussed included spinal headache, bleeding, and infection. The patient understood the ris ks and agreed to proceed. A timeout was performed to verify the patient's name, date of , and procedure to be performed. The skin overlying the L2-L3 and L4-L5 levels was prepped and draped in usual sterile fashion. Subcutaneous 1% lidocaine was used for local anesthesia. A 22 gauge spinal n eedle was advanced under fluoroscopic guidance at L2-L3 without success and then at L4-L5 with succes s. 17 mL Omnipaque 180 was injected. The needle was removed and the entry site was cleaned and dresse d. There were no immediate complications. Fluoroscopy exposure time was 0.5 minutes. The total numbe r of images was 10. Computed tomography (CT) of the lumbar spine was performed without intravenous co ntrast. Automated exposure control and iterative reconstruction technique were employed. The dose-erasmo gth product was 1035.82 mGy-cm. COMPARISON: CT LUMBAR SPINE 09/06/24 FINDINGS: LUMBAR MYELOGRAM: Real-time fluoroscopy demonstrates the needle at the L4-L5 level. There is indentat ion the thecal sac at multiple levels that will be further described on the post myelogram CT. LUMBAR SPINE POST MYELOGRAM CT: There is a 1.9 cm mass in left adrenal gland measuring low attenuatio n, consistent with an adenoma. There is a 3.4 cm cyst in left kidney. The bladder is distended. There is 7 degrees levocurvature of lumbar spine. There is 3 mm anterolisthesis of L4 on L5. There is mild chronic anterior wedging of T11 and T12 vertebral bodies. There is mildly decreased disc height at T 12-L1 and L3-L4, moderately decreased disc height at L4-L5, and severely decreased disc height at L5- S1. There is epidural lipomatosis in lower lumbar spine. The conus medullaris is at L1. The following disc levels are specifically discussed: L1-L2: The disc is bulging. There is moderate right and mild left facet joint osteoarthritis. There i s mild bilateral neural foraminal stenosis. There is mild central canal stenosis. L2-L3: There is a right foraminal protrusion. There is moderate bilateral facet joint osteoarthritis. There is mild right neural foraminal stenosis. There is no central canal stenosis. L3-L4: The disc is bulging. There is moderate bilateral facet joint osteoarthritis. There is mild majo ateral neural foraminal stenosis. There is mild central canal stenosis. L4-L5: The disc is bulging with superimposed right central extrusion. There is severe bilateral facet joint osteoarthritis. There is moderate bilateral neural foraminal stenosis. There is mild central c anal stenosis. L5-S1: The disc is bulging. There is severe bilateral facet joint osteoarthritis. There is moderate r ight and mild left neural foraminal stenosis. There is mild central canal stenosis. IMPRESSION: 1. Severe lower lumbar spondylosis. Reviewed, dictated and finalized at location A. IMPRESSION: 1. Severe lower lumbar spondylosis.
--- OUTSIDE RECORDS SUMMARY | 2025-01-17 09:06 | XMS_ITS | Clinical Summary ---
Author Organization [facility] Address [address] [place] [address] Care Team Providers Care Kiln Operator Name Role Phone Jean Paul Mcdaniel MD Primary Care Provider [phone] Social History Tobacco Use Types Packs/Day Years [...] Vaccine ( - 2023-2 5 season) 2024 RSV Immunization or 60+ Years (1 [...] complete this topic Insurance [employer] Care Teams Kiln Operator Relationship Specialty Start Date End Date Jean Paul Mcdaniel MD [address] [place] [address] PCP - General FAMILY PRACTICE 06/17/24
--- OUTSIDE RECORDS SUMMARY | 2025-01-17 09:06 | XMS_ITS | CONTINUITY OF CARE DOCUMENT ---
Author Name uli mcnally Address Unknown Organization [facility] Address [address] [place] [address] [address] [place] [address] Phone [phone] Care Team Providers Care Drier Tender Naphthalene Name Role Phone uli mcnally Unavailable Unavailable
--- OUTSIDE RECORDS SUMMARY | 2025-01-17 09:06 | XMS_ITS | Clinical Summary ---
Author Organization [facility] Address [address] [place] [address] Phone Care Team Providers Care Art Therapist Name Role Phone Jean Paul Mcdaniel MD Primary Care Provider [phone] Allergies Active Allergy Reactions Criticality Noted Date [...] 2023 Influenza Vaccine (#1) 2024 Care Teams Art Therapist Relationship Specialty Start Date End Date Jean Paul Mcdaniel MD [address] [facility] [address] [place] [address] PCP - General Internal Medicine 12/18/21
--- OUTSIDE RECORDS SUMMARY | 2025-01-17 09:06 | XMS_ITS | Continuity of Care Document ---
Author Organization [facility] Address [address] [place] [address] [address] [place] [address] Phone Care Team Providers Care Patent Prosecution Attorney Name Role Phone Jose Ayoub Unavailable Unavailable Procedures Procedure Date Office/outpatient Visit, [facility] Office/outpatient Visit, Est Office/outpatient Visit, [facility] Advance Directives Directive Yes / No Effective Date File Name No Information Encounters Encounter Description Practice Location Reason(s) For Visit Diagnoses Date Provider Providers Copied on Encounter [place] [facility] [place] [address], [place], [place], [id number], [place] tel:[phone] [facility] No Information Mar-3 0-200 8 Krishnasamy Jose. [address], [facility], [place]. tel:[phone] Referring Provider: Hugo Benitez MD, [address] [place], [place], [facility]. tel:[phone] [place] [facility] [place] [address] [place] [address] [address], [place], [place], [id number], [place] tel:[phone] SEC [facility] No Information Manjit-0 6-200 8 Krishnasamy Jose. [address], [facility], [place]. tel:[phone] Referring Provider: Hugo Benitez MD, [address] [place], [place], [facility]. tel:[phone] Office/outpat ient Visit, [facility], [address], [place], [place], [id number], [place] tel:[phone] [facility] No Information 9-200 8 Shahramkimberly Dillan. [address] [facility] [address], [place], [address], [place]. tel:[phone] Referring Provider: Hugo Benitez MD, [address] [facility], [place], [address]. tel:[phone] Family History Family Member Type Diagnosis Age At Onset No Information Payers Payer name Insurance type Covered constitution party ID Authoriza tion(s) No Information Social History [...]
[2025-01-17 09:25] LABS: Mean Platelet Volume 9.6 fl (7.4-10.4); Platelet Count Result 228 k/mm3 (150-375)
[2025-01-17 09:35] LABS: INR 0.9; Prothrombin Time 12.6 Seconds (11.1-14.7)
[2025-01-17] MEDS: HYDROcodone/acetaminophen (*CRX) 5-325 MG TABLET 1 TAB PO (10:51)
[2025-01-17 12:34] LABS: Glucose Point of Care 162 mg/dl (65-105)
--- NOTE | 2025-01-17 12:46 | SUR.PHASEII ---
1245: patient dressed and ready for dc. Awaiting Dr. Matthew to come to bedside to update him and his family member.
== END 2025-01-17 13:00 | disposition home or self-care (01) ==
PROVIDERS: Radiology Diagnostic Radiology; PCP Family Medicine; Referring Provider Neurological Surgery; Visit Provider Radiology Diagnostic Radiology
DX: M43.16 Spondylolisthesis, lumbar region (principal); M48.061 Spinal stenosis, lumbar region without neurogenic claudication
CPT/HCPCS: 36415; 62304; 72132; 82948; 85049; 85610; A9270; Q9965

== ENCOUNTER 2025-06-06 10:43 | Outpatient (CLI) | payer OTHER, SELFPAY ==
--- OUTSIDE RECORDS SUMMARY | 2025-06-06 11:39 | XMS_ITS | Clinical Summary ---
Author Organization [facility] Address [address] [place] [address] Phone Care Team Providers Care Enthone Solder Stripper Name Role Phone Jean Paul Mcdaniel MD Primary Care Provider [phone] Allergies Active Allergy Reactions Criticality Noted Date Comments Metformin Hives 02/17/2022 Medications fish oil-omega-3 fatty acids 1000 MG capsule Take 1 g by mouth 1 (one) time each day Active SITagliptin (JANUVIA) 25 MG tablet Take 25 mg by mouth 1 (one) time each day Active amLODIPine (NORVASC) 5 MG tablet Take 5 mg by mouth 1 (one) time each day Active hydroCHLOROthia zide (HYDRODIURIL) 25 MG tablet Take 25 mg [...] at Not on file Legal Sex Male 2:18 PM MST Gender Identity Not on file Sexual Orientation [...] 10:45 AM CDT Height 175.3 cm (5' 9) 05/30/2022 10:45 AM CDT Body Mass Index 23.63 05/30/2022 10:45 AM CDT Plan of Treatment Health Maintenance Due Date Last Done Comments Pneumococcal PPSV23/PCV13 65 + Years / Low and Medium Risk (1 of 2 - PCV) 01/28/2008 Influenza Vaccine (#1) 2025 Insurance [employer] Care Teams Enthone Solder Stripper Relationship Specialty Start Date End Date Jean Paul Mcdaniel MD [address] [facility] [address] [place] [address] PCP - General Internal Medicine 12/18/21
--- OUTSIDE RECORDS SUMMARY | 2025-06-06 11:40 | XMS_ITS | Continuity of Care Document ---
Author Organization [facility] Address [address] [place] [address] [address] [place] [address] Phone Care Team Providers Care Fisher Diving Name Role Phone Jose Ayoub Unavailable Unavailable Procedures Procedure Date Office/outpatient Visit, [facility] Office/outpatient Visit, Est Office/outpatient Visit, [facility] Advance Directives Directive Yes / No Effective Date File Name No Information Encounters Encounter Description Practice Location Reason(s) For Visit Diagnoses Date Provider Providers Copied on Encounter Office/outpat ient Visit, [facility] [place] [address], [place], [place], [id number], [place] tel:[phone] [facility] No Information Mar-3 0-200 8 Krishnasamy Jose. [address], [facility], [place]. tel:[phone] Referring Provider: Hugo Benitez MD, [address] [place], [place], [facility]. tel:[phone] Office/[place]pat ient [place], [facility] [place] [address] [place] [address] [address], [place], [place], [id number], [place] tel:[phone] [facility] No Information Manjit-0 6-200 8 Krishnasamy Jose. [address], [facility], [place]. tel:[phone] Referring Provider: Hugo Benitez MD, [address] [place], [place], [facility]. tel:[phone] Office/outpat ient Visit, [facility], [address], [place], [place], [id number], [place] tel:[phone] [facility] No Information 9-200 8 Shahramkimberly Dillan. [address] [facility] [address], [place], [address], [place]. tel:[phone] Referring Provider: Hugo Benitez MD, [address] [facility], [place], [address]. tel:[phone] Family History Family Member Type Diagnosis Age At Onset No Information Payers Payer name Insurance type Covered libertarian ID Authoriza tion(s) No Information Social History [...]
--- OUTSIDE RECORDS SUMMARY | 2025-06-06 11:40 | XMS_ITS | Clinical Summary ---
Author Organization [facility] Address [address] [place] [address] Care Team Providers Care Quality Auditor Name Role Phone Jean Paul Mcdaniel MD Primary Care Provider [phone] Social History Tobacco Use Types Packs/Day Years [...] Td Vaccines ( 1 - Tdap) 1977 Pneumococcal Vaccine: 50+ Ye ars (1 of 1 - PCV) 01/28/2008 Zoster Vaccines (1 of 2) 01/28/2008 Annual Medicare Wellness Visit 2023 COVID-19 Vaccine ( - 2023-2 5 [...] complete this topic Insurance E[employer]ENCE Care Teams Quality Auditor Relationship Specialty Start Date End Date Jean Paul Mcdaniel MD [address] [place] [address] PCP - General FAMILY PRACTICE 06/17/24
[2025-06-06 12:14] LABS: Hematocrit 42.6 % (42.0-52.0); Hemoglobin 14.2 g/dL (14.0-18.0); Mean Corpuscular HGB Conc 33.3 g/dl (32-36); Mean Corpuscular Hemoglobin 32.9 pg (26-34); Mean Corpuscular Volume 98.6 fl (80-100); Platelet Count Result 264 k/mm3 (150-375); Red Blood Count 4.32 M/mm3 (4.6-6.20); White Blood Count 9.2 K/mm3 (4.5-10.0)
[2025-06-06 12:25] LABS: INR 1.0; Prothrombin Time 13.1 Seconds (11.1-14.7)
[2025-06-06 12:26] LABS: Partial Thromboplastin Time 28.9 Seconds (22.3-36.8)
[2025-06-06 12:34] LABS: Anion Gap 9 mmol/L (4-12); Blood Urea Nitrogen 10 mg/dL (9-20); Calcium 9.4 mg/dL (8.4-10.2); Carbon Dioxide 24 mmol/L (22-30); Chloride 103 mmol/L (98-107); Estimated Glomerular Filt Rate > 60; Glucose 152 mg/dL (65-110); Potassium 4.5 mmol/L (3.4-5.0); Sodium 136 mmol/L (137-145)
[2025-06-06 12:46] LABS: Add Urine Microscopic? NO; Appearance Urine Clear (Clear); Glucose Urine UA Trace mg/dL (Negative); Leukocyte Esterase Ur Negative LEU/UL (Negative); Nitrate Urine Negative (Negative); Specific Grav Ur 1.019 (1.001-1.035)
[2025-06-06 22:21] LABS: Hemoglobin A1C 6.7 % (<5.7)
== END 2025-06-06 10:44 | disposition home or self-care (01) ==
PROVIDERS: PCP Family Medicine; Visit Provider Neurological Surgery
DX: Z01.812 Encounter for preprocedural laboratory examination (principal); M43.16 Spondylolisthesis, lumbar region; M47.816 Spondylosis without myelopathy or radiculopathy, lumbar region
CPT/HCPCS: 36415; 80048; 81003; 83036; 85027; 85610; 85730

== ENCOUNTER 2025-06-21 00:42 | Day surgery (SDC) | payer OTHER, SELFPAY ==
--- OUTSIDE RECORDS SUMMARY | 2008-04-18 02:48 | XMS_ITS | Continuity of Care Document ---
Author Organization [facility] Address [address] [place] [address] [address] [place] [address] Phone Care Team Providers Care Electric Meter Installer Name Role Phone Jose Ayoub Unavailable Unavailable Procedures Procedure Date Office/outpatient Visit, [facility] Office/outpatient Visit, Est Office/outpatient Visit, [facility] Advance Directives Directive Yes / No Effective Date File Name No Information Encounters Encounter Description Practice Location Reason(s) For Visit Diagnoses Date Provider Providers Copied on Encounter Office/outpat ient Visit, [facility], [address], [place], [place], [id number], [place] tel:[phone] SEC [facility] No Information Mar-3 0-200 8 Krishnasamy Jose. [address], [facility], [place]. tel:[phone] Referring Provider: Hugo Benitez MD, [address] [place], [place], [facility]. tel:[phone] Office/outpat ient Visit, [facility], [address] [place] [address] [address], [place], [place], [id number], [place] tel:[phone] SEC [facility] No Information Manjit-0 6-200 8 Krishnasamy Jose. [address], [facility], [place]. tel:[phone] Referring Provider: Hugo Benitez MD, [address], [place], [facility]. tel:[phone] Office/outpat ient Visit, [facility], [address], [place], [place], [id number], [place] tel:[phone] SEC [facility] No Information 9-200 8 Shahramkimberly Dillan. [address], [address], [place], [address], [place]. tel:[phone] Referring Provider: Hugo Benitez MD, [address] [facility], [place], [address]. tel:[phone] Family History Family Member Type Diagnosis Age At Onset No Information Payers Payer name Insurance type Covered democrat ID Authoriza tion(s) No Information Social History Type Description Quantity Date Captured Comments Sex Male Smoking Status No Information Chief Complaint And Reason For Visit No Information Reason For Referral Reason For Referral No Information History Of Present Illness Encounter Date Complaint History Of Prese nt Illness No Information Functional Status Date Functional Assessmen t No Information Instructions Date Instruction Additional Infor mation No Information Assessments Type Assessment Date No Information Patient Care Teams Name Effective Dates (start - stop) Status Members No Information
--- NOTE | 2025-06-06 10:49 | PC.NURSE ---
Report to the Outpatient Waiting Room, entrance under the green pavilion located off [facility], at time __6 am on date _06/21/25 . Planned Procedure Time: _7:30 am .? Time changes happen often and if your time is changed the preop area will call you the afternoon before. - You and your visitor will be asked to self-screen and do not enter if you have any COVID symptoms. Please call surgeon if you need to reschedule. - A mask is optional within the hospital at this time. Patients may have clear liquids (water, carbonated beverages, clear teas, apple juice) until 3 hours prior to surgery( 4:30 am) with a maximum of 20 ounces. - No food from midnight until time of surgery and no smoking, or chewing tobacco (or any form of nicotine). No chewing gum, candy or mints. Take only the following medications with a SIP of water on the morning of surgery: __CARVEDILOL_, HYDROCODONE IF NEEDED FOR PAIN DO NOT STOP ANY OF YOUR OTHER PRESCRIPTION MEDICATIONS PRIOR TO SURGERY EXCEPT THE FOLLOWING Hold all vitamins and supplements for 3 days per anesthesiologist.LAST DOSE 06/17/25 Medications to discontinue per physician PATIENT STATES HOLD ASPIRIN 7 DAYS PRE OP PER DR SHAIKH Date to take last dose____06/13/25 Please no make-up, nail faroese, hairspray, perfume, deodorant, or body powder the day of surgery.? No jewelry (including any body piercings) or valuables the day of surgery, leave them at home.? Please take a shower or bath the night before, or the morning of, surgery with an antibacterial soap.? Wear comfortable, loose fitting clothing.? Children are encouraged to wear pajamas. - Jewelry must be removed prior to entering the operating room.? Rings and piercings that are not removed may be cut off. - The hospital will not accept responsibility for valuables.? - Please leave all valuables, including medications, at home the day of surgery. If you are going home after surgery, a licensed roll off driver must drive you home.? - NO public transportation without another adult if you receive anesthesia. - We recommend that an adult stay with you for 24 hours following discharge. - We also recommend that you do not drive, make important decision, drink alcoholic beverages, or take any drugs that were not prescribed by your health care provider for at least 24 hours after your discharge time. For Pediatric surgeries, we recommend two adults accompany the child home. Follow any additional instructions given to you from your surgeon. VERBAL AND WRITTEN instructions given to ___PATIENT and asked if any additional questions and then verbalized understanding. Patient advised to call surgeon office or pre surgery nurse liaison [phone] if any additional questions.
[2025-06-06 10:53] VITALS: BMI 25.4
[2025-06-06 11:42] VITALS: BP 139/94; PULSE 60; RESP 18; TEMP 37.2; O2SAT 99
[2025-06-21] VITALS (14 sets, daily range): BP systolic 135–173; BP diastolic 71–90; PULSE 66–99; RESP 12–18; TEMP 35.5–36.4; O2SAT 94–100
--- NOTE | ~2025-06-21 | XR_ITS ---
XR fluoroscopy no charge Indication: L4-5 posterior lumbar interbody fusion TECHNIQUE: Fluoroscopy used during L4-5 posterior lumbar interbody fusion performed by [Tim Bansal MD] on 06/21/2025. 7 seconds of fluoroscopy time with one fluoroscopic images captured. FINDINGS: Correlate with procedure note. IMPRESSION: Fluoroscopy used during L4-5 posterior lumbar interbody fusion. Reviewed, dictated and finalized at location O.
--- OUTSIDE RECORDS SUMMARY | 2025-06-21 00:46 | XMS_ITS | Clinical Summary ---
Author Organization [facility] Address [address] [place] [address] Care Team Providers Care Title Insurance Sales Representative Name Role Phone Jean Paul Mcdaniel MD Primary Care Provider [phone] Social History Tobacco Use Types Packs/Day Years [...] complete this topic Insurance [employer] Care Teams Title Insurance Sales Representative Relationship Specialty Start Date End Date Jean Paul Mcdaniel MD [address] [place] [address] PCP - General FAMILY PRACTICE 06/17/24
--- NOTE | 2025-06-21 07:22 | PM.IMHP ---
H&P: [facility] History of Present Illness Date/Time: 06/21/25 07:22 Chief Complaint: Back and leg pain Narrative: Gene is a 64-year-old gentleman with a long-time history of back problems. He presents today for L4-5 posterior lumbar interbody fusion. He had a back injury at work 03/08/2035 years ago and has had intermittent problems since then. More recently has had increased pain in his back. He says it is in a bandlike fashion in the low lumbar spine. If anything it radiates to the right buttock and hip area. He has pain around the right knee and at times limps on that. This is only been since , or so. The back pain goes back years progressively. He does not report specific muscle group weakness or dermatomal numbness. He does not have any bowel or bladder difficulty. The pain is related to activity including making transfers and bending, lifting and twisting. He is able to walk after he gets going but initially limps on his right leg because of difficulty at the hip and especially the knee. He has undergone epidural steroid injection or some sort of injection in his back without any permanent benefit. He has had a CT scan only because he is very claustrophobic. The pain does not seem to go farther down then just over his knee and in fact there may be a procure year and particular pain around the right knee that is not related to his back. The pain is severe and limiting for him on a daily basis and he has not been able to do useful work recently because of it. Review of Systems Review of Systems: All systems reviewed & are unremarkable except as noted in HPI and below Denies chills, Denies fever, Denies weight gain and Denies weight loss Eyes Denies change in vision and Denies diplopia ENT Denies disequilibrium Card Denies chest pain and Denies dyspnea Resp Denies cough and Denies dyspnea GI Denies abdominal pain, Denies change in bowel habits, Denies fecal incontinence and Denies vomiting Denies hematuria, Denies oliguria, Denies difficulty urinating, Denies dysuria, Denies urinary frequency, Denies urinary hesitancy, Denies urinary incontinence and Denies urinary urgency Musc Reports as per HPI Skin/ Breast Reports system reviewed and no additional complaints, except as documented Neuro Reports as per HPI Psych Reports no additional complaints, Denies depression and Denies hopelessness Endo Reports no additional complaints and Denies polyuria Freddie/ Lymph Reports no additional complaints Aller/ Immun Reports no additional complaints [facility] Past Medical History Medical History History of colon polyps Smoking history HLD (hyperlipidemia) HTN (hypertension), benign Controlled diabetes mellitus Surgical History Surgical History History of left inguinal hernia repair DaVinci w/ mesh S/P right knee arthroscopy Family History Family History Mother Breast cancer Father Heart disease Social History Social History (Updated 04/07/25 @ 07:55 by Bambi Pizarro MA) Smoking packs per day: 0.50 Smoking cigarettes per day: 10.0 Years smoked: 25 Smoking pack-years: 12.50 Smoking status: Current some day smoker Tobacco type: cigars Second hand tobacco smoke exposure: Yes Smoking end date: 04/19/15 Additional smoking assessment comments: cigar twice a month Alcohol intake: current Drinks per week: 17 Alcohol use details: beer Substance use: never Substance use type: does not use Living arrangements: with family Occupation/Education: retired Gender identity (if verbalized by the patient): Male Sexual Orientation (if Verbalized by the Patient): Straight or Heterosexual Spiritual care concerns: No Meds Home Medications and Allergies Home Medications ?Medication ?Instructions ?Recorded ?Confirmed ?Type omega-3 fatty acids 1,000 mg 3,000 mg PO DAILY 12/07/19 06/21/25 History capsule (Fish Oil Concentrate) aspirin 81 mg tablet 81 mg PO DAILY 08/20/23 06/21/25 History carvedilol 12.5 mg tablet 12.5 mg PO Q12H #180 tabs 11/29/24 06/21/25 Rx gabapentin 300 mg capsule 300 mg PO QHS #90 caps 11/29/24 06/06/25 Rx lisinopril 20 mg tablet 20 mg PO BID #180 tabs 11/29/24 06/06/25 Rx rosuvastatin 40 mg tablet 40 mg PO DAILY #90 tabs 11/29/24 06/21/25 Rx glimepiride 1 mg tablet 2 mg (2 x 1 mg) PO QAM #180 tabs 01/13/25 06/21/25 Rx cyclobenzaprine 5 mg tablet 5 mg PO TID PRN muscle spasm #60 05/02/25 06/06/25 Rx tabs hydrocodone 5 mg-acetaminophen 325 1 tablet PO Q8H PRN pain (scale 06/01/25 06/06/25 Rx mg tablet score 7-10) #60 tabs multivitamin (Daily Multi-Vitamin 1 tablet PO DAILY 06/06/25 06/21/25 History tablet) Allergies Allergy/AdvReac Type Severity Reaction Status Date / Time metformin AdvReac Intermediate Other Verified 06/21/25 07:13 Vital Signs Vital Signs - 24 hr 06/21/25 06:40 Temperature 97.5 F L Pulse Rate 66 Respiratory Rate 14 Blood Pressure 173/90 H Pulse Oximetry 100 Oxygen Delivery Room Air Exam Narrative: General: cooperative, no acute distress, well developed, alert and awake Orientation/Consciousness: oriented to person, oriented to place and oriented to time Constitutional Limitations: no limitations Other: The patient is a normally developed, normal appearing male sitting on the examination table in no acute distress. He is awake, alert, and oriented x3 with good fund of knowledge, recall of events, and fluent speech. HENDE Head: normocephalic and atraumatic Ears: external ears normal Face/Nose/Sinus: Normal external nose present Eyes Eyelids: eyelids normal Pupils: Yes Pupils normal by confrontation EOM: EOMs intact bilaterally Neck General: Yes no meningeal signs, Yes supple and Yes no JVD Resp Effort/Inspection: normal respiratory effort and able to speak in complete sentences Cardio Rate: Yes regular rate GI Inspection: No abdominal distension Musc Other: Examination of the back reveals no tenderness. Range of motion of the back is full without pain in forward flexion, extension, and lateral rotation to both sides. Straight leg raise is negative bilaterally. Chris?s test is negative bilaterally. Skin General: normal color Neuro General: Yes oriented to person, Yes oriented to place, Yes oriented to time, Yes normal cognition and Yes no meningeal signs Cranial Nerves: Yes CN's II-XII intact bilaterally Other: Motor: Strength is normal, 5/5, throughout all muscle groups of the bilateral upper and lower extremities to direct confrontation. Sensory: Sensation is intact to light touch throughout the upper and lower extremities bilaterally. Reflexes: Deep tendon reflexes 2+ equal and symmetric at the knees and ankles bilaterally, 3+ at the biceps, triceps, and brachioradialis bilaterally. There is positive ankle clonus on the right, no ankle clonus on the left. Arenas's sign is negative bilaterally. Gait: Gait, station, and transfers are independent and steady for short periods of time and over short distances. Psych Appearance: grossly normal Mental status: Yes mental status grossly normal Mood: congruent mood Affect: Yes normal affect Speech/Movement: Normal speech and movement present Attitude: Yes cooperative Thought Content: Normal thought content present Assessment and Plan Assessment and plan (1) Spondylolisthesis of lumbar region: Code(s): M43.16 - Spondylolisthesis, lumbar region Status: Acute (2) Lumbar spondylosis: Code(s): M47.816 - Spondylosis without myelopathy or radiculopathy, lumbar region Status: Acute Plan Gene is a 64-year-old gentleman with a frequent spondylolisthesis and severe spondylosis at L4-5 and some other milder degenerative issues in his back who presents for L4-5 posterior lumbar interbody fusion. I described to him again that operation, its risks, potential benefits, the operative and postoperative course in detail and answered all his questions personally. We discussed risks including but not limited to permanent neurologic deficit secondary to nerve root injury, need for reoperation secondary to infection, bleeding, CSF leak, adjacent level disease, recurrent residual pathology or instability, failure of the procedure to relieve his pain or symptoms, persistent pain, medical complications related to anesthesia or surgery, etc.. Indicates understanding and elects to proceed with that operation.
--- NOTE | 2025-06-21 07:22 | WPDANESEPPF ---
Anes - Initial Pre Proc Eval Procedure: Operation Date: 06/21/25 07:30 Proposed Procedures p L4-5, Posterior Lumbar Interbody Fusion - Tim Bansal MD Date/Time: 06/21/25 07:22 Surgeon: Tim Bansal MD Pre Op Diagnosis: L4-5 spondylolisthesis Patient Data Age: 65 Gender: M Height: 1.7 m Weight: 72.3 kg Last Vital Signs Temp 36.4 C L 06/21/25 06:40 Pulse 66 06/21/25 06:40 Resp 14 06/21/25 06:40 BP 173/90 H 06/21/25 06:40 Pulse Ox 100 06/21/25 06:40 O2 Del Method Room Air 06/21/25 06:40 Allergies Allergy/AdvReac Type Severity Reaction Status Date / Time metformin AdvReac Intermediate Other Verified 06/21/25 07:13 Home Medications ?Medication ?Instructions ?Recorded ?Confirmed ?Type omega-3 fatty acids 1,000 mg 3,000 mg PO DAILY 12/07/19 06/21/25 History capsule (Fish Oil Concentrate) aspirin 81 mg tablet 81 mg PO DAILY 08/20/23 06/21/25 History carvedilol 12.5 mg tablet 12.5 mg PO Q12H #180 tabs 11/29/24 06/21/25 Rx gabapentin 300 mg capsule 300 mg PO QHS #90 caps 11/29/24 06/06/25 Rx lisinopril 20 mg tablet 20 mg PO BID #180 tabs 11/29/24 06/06/25 Rx rosuvastatin 40 mg tablet 40 mg PO DAILY #90 tabs 11/29/24 06/21/25 Rx glimepiride 1 mg tablet 2 mg (2 x 1 mg) PO QAM #180 tabs 01/13/25 06/21/25 Rx cyclobenzaprine 5 mg tablet 5 mg PO TID PRN muscle spasm #60 05/02/25 06/06/25 Rx tabs hydrocodone 5 mg-acetaminophen 325 1 tablet PO Q8H PRN pain (scale 06/01/25 06/06/25 Rx mg tablet score 7-10) #60 tabs multivitamin (Daily Multi-Vitamin 1 tablet PO DAILY 06/06/25 06/21/25 History tablet) Laboratory Tests 06/21/25 06:39 POC Capillary Glucose 224 H mg/dl (65-105) Patient hx anesthesia problems: none Family hx anesthesia problems: none Results Review: All pre-operative results and documents have been reviewed as part of the pre-operative evaluation. [facility] Past Medical History Medical History History of colon polyps Smoking history HLD (hyperlipidemia) HTN (hypertension), benign Controlled diabetes mellitus Surgical History Surgical History History of left inguinal hernia repair DaVinci w/ mesh S/P right knee arthroscopy Family History Family History Mother Breast cancer Father Heart disease Social History Social History Smoking packs per day: 0.50 Smoking cigarettes per day: 10.0 Years smoked: 25 Smoking pack-years: 12.50 Smoking status: Current some day smoker Tobacco type: cigars Second hand tobacco smoke exposure: Yes Smoking end date: 04/19/15 Additional smoking assessment comments: cigar twice a month Alcohol intake: current Drinks per week: 17 Alcohol use details: beer Substance use: never Substance use type: does not use Living arrangements: with family Occupation/Education: retired Gender identity (if verbalized by the patient): Male Sexual Orientation (if Verbalized by the Patient): Straight or Heterosexual Spiritual care concerns: No Anes - Eval Final PreProcedure Day of Procedure 06/21/25 07:22 Patient weight: normal Heart: regular rate and rhythm Lungs: decreased breath sounds Airway: Mallampati scale class III Neurological: alert and oriented Last oral intake: >/= 8 hours ASA classification: III Emergent: no Anesthetic plan: proceed Anesthesia type and monitoring: general ETT and standard monitoring Results Review: All pre-operative results and documents have been reviewed as part of the pre-operative evaluation. Informed Consent: The patient's anesthetic plan and its attendant risks and benefits were discussed with the patient/family/POA. Questions were solicited and answers provided to the satisfaction of the patient/family/POA.
--- NOTE | 2025-06-21 07:25 | WPDHPUPDATE1 ---
History and Physical Update Update Date/Time: 06/21/25 07:25 History and Physical has been reviewed, including an updated exam of the patient. There are NO changes in the patient's condition. Risks, benefits, and alternatives have been discussed and questions answered. Patient agrees to proceed with procedure.
[2025-06-21] MEDS: ceFAZolin 2 GM in SODIUM CHLORIDE 0.9% IV 50 ML 100 ML IVPB (07:30)
[2025-06-21] MEDS: LIDO 1%/EPINEPHRINE 1:100,000 20 ML VIAL INFILTRATE (08:26)
[2025-06-21] MEDS: LACTATED RINGERS 1,000 ML 30 ML IV CONT ×2 (10:18)
[2025-06-21] MEDS: fentaNYL CITRATE INJ (*CRX) 100 MCG/2 ML VIAL 25 MCG IV PUSH ×8 (10:28→11:02)
--- NOTE | 2025-06-21 10:31 | P.OP_ITS ---
Procedure Note - Detailed Date of Procedure 06/21/25 Pre-op Diagnosis L4-5 spondylolisthesis Post-op Diagnosis Same Procedure Performed L4-5 complete laminectomy bilateral facetectomy, L4-5 complete diskectomy and interbody arthrodesis utilizing titanium interbody devices and local autograft, L4-5 pedicle screw instrumentation Surgeon Tim Bansal MD Anesthesia General Description of Procedure Patient was brought to the operating room in the supine position, was sedated, intubated placed under general anesthesia in routine fashion. He was then turned into the prone position on a Romie frame. There operation on his back was examined, marked for incision, prepped and draped in routine sterile [facility] ion. Incision was marked over the L4-L5 spinous processes in the midline. This area was injected with 0.5% lidocaine with [id number] epinephrine. Intravenous antibiotics given prior to incision. Incision was made with a 10 blade scalpel in down to the lumbodorsal fascia. A subperiosteal dissection of the muscle soft tissue away from spinous process lamina at L4-L5 was performed with a subperiosteal elevator and Bovie cautery. A verifying x-rays obtained to verify the level of operation. The L4 spinous process was removed with a Lisa rongeur. Kerrison punches, curved curettes and a Leksell rongeur were used to remove the lamina in the midline until the soft contents of the canal were encountered. A Midas Stanislav drill was used to resect the pars bilaterally at L4. The inferior articular process and facet of L4 could then be removed bilaterally. These +spinous process were stripped free of soft tissue and morselized for later use as interbody autograft. Kerrison punches and curved curettes were used to define a plane with the dura and removed bone ligament flush with the pedicle and through the foramina widely decompressing the exiting nerve roots. With the thecal sac retracted and protected disc space was entered bilaterally using an 11 blade scalpel. Scrapers a very sizes, curettes a Veress configurations, pituitary rongeur and a rasp were used to remove as much cartilaginous endplate and disc material as possible down to bleeding cortical flat surfaces on the opposing bones. The disc spaces in size and 10 mm interbody devices were chosen and filled with loc al autograft bone. The disc space was likewise filled with local autograft bone medially and anteriorly. The interbody devices were then placed with 2-3 mm countersink within the disc space bilaterally. Pedicle screw instrumentation was performed by observing and palpating the pedicle wall a hole was made in the superior to the process above the pedicle using a Midas Stanislav drill. The pedicle was then cannulated with a pedicle probe, checked for continuity with the ball probe, tapped with a 5.5 mm tap and a 6.5 x 50 mm screw was placed into each pedicle on each side. Rods were placed into th e screw heads on either side and secured in position using caps that purpose. These are definitively tightened with the torque and anti torque device. Verifying x-rays obtained to verify good position of the instrumentation which was confirmed. The wound was then copiously irrigated with bacitracin irrigation all bleeding stopped with bipolar and Bovie cautery and Gelfoam thrombin powder. The wound was then closed in layered fashion with 2-0 Vicryl interrupted sutures in the lumbodorsal fascia and Gris's layer. 3-0 Vicryl buried interrupted sutures were placed in the dermis and the skin was closed with a running 4-0 Monocryl subcuticular stitch and dressed with Dermabond. The patient was allowed to wake up in the operating room and was taken to the recovery room in stable condition. There were no immediate complications of this operation. All counts reported correct at the end of the case. Per blood loss was 250 cc. The patient was neurologically at his baseline postope ratively. CPT codes: 84119, 94057, 60938, 99876, to 0936 Estimated Blood Loss 250 Drains Yes Complications None Condition Stable Disposition PACU [facility] Billing Surgery - Charge Forward: Surgery Billing
[2025-06-21] MEDS: HYDROmorphone HCL INJ (*CRX) 1 MG/ML SYR 0.5 MG IV PUSH ×2 (11:20→12:33)
--- NOTE | 2025-06-21 12:44 | ADMGEN ---
This patient, Gene Whitney, was admitted to 3 [facility] Surg Room 310-01. Patient/family oriented to hospital policies and general routines including ID bracelet, bed and alarms, visiting hours, pain management, procedures, bathroom and other care routines, personal items, smoking policy, room service/diet, and visiting hours. Information on how to activate the Rapid Response Team has been discussed. Patient/Family are encouraged to report perceived risks to care and to ask questions if they do not understand what they are told or what they should do.
[2025-06-21] MEDS: HYDROcodone/acetaminophen (*CRX) 10-325 MG TABLET 1 TAB PO ×3 (14:22→22:27)
[2025-06-21] MEDS: ceFAZolin 1 GM in SODIUM CHLORIDE 0.9% IV 50 ML 100 ML IVPB ×2 (15:19→22:27)
[2025-06-21] MEDS: DOCUSATE SODIUM 100 MG CAPSULE PO (21:06)
[2025-06-21] MEDS: CYCLOBENZAPRINE HCL 10 MG TABLET PO (21:07)
[2025-06-22 03:15] VITALS: BP 131/54; PULSE 77; RESP 18; TEMP 36.4; O2SAT 95
[2025-06-22] MEDS: HYDROmorphone HCL INJ (*CRX) 1 MG/ML SYR 0.5 MG IV PUSH (03:30)
[2025-06-22 06:05] VITALS: BP 124/64; PULSE 74; RESP 18; TEMP 36.3; O2SAT 96
[2025-06-22] MEDS: HYDROcodone/acetaminophen (*CRX) 10-325 MG TABLET 1 TAB PO ×2 (06:07→11:41)
[2025-06-22] MEDS: ceFAZolin 1 GM in SODIUM CHLORIDE 0.9% IV 50 ML 100 ML IVPB (06:08)
[2025-06-22 08:32] VITALS: PULSE 80
[2025-06-22] MEDS: DOCUSATE SODIUM 100 MG CAPSULE PO (08:32)
[2025-06-22] MEDS: GLIMEPIRIDE 2 MG TABLET PO (08:32)
[2025-06-22] MEDS: ROSUVASTATIN 20 MG TABLET 40 MG PO (08:32)
[2025-06-22] MEDS: MULTIVITAMINS THERAPEUTIC TAB (*BKC) 1 TABLET PO (08:32)
[2025-06-22] MEDS: CYCLOBENZAPRINE HCL 10 MG TABLET PO (08:32)
[2025-06-22] MEDS: OMEGA 3 POLYUNSAT FATTY ACIDS 1 GM CAP 3 GM PO (08:32)
[2025-06-22 10:35] VITALS: BP 117/75; PULSE 79; RESP 18; TEMP 36.2; O2SAT 98
--- NOTE | 2025-06-22 13:12 | P.PNNEUSUR_ITS ---
Progress Note: A&P Assessment and Plan (1) Status post lumbar spinal fusion: Code(s): Z98.1 - Arthrodesis status Status: Acute Plan -Remove hemovac drain today -Discharge home today -Wound care and activity precautions reviewed at bedside -Follow up with Dr. Bansal in clinic as scheduled Subjective Date/time seen: 06/22/25 13:12 Interval history: Doing very well with manageable back pain and no leg pain. Ambulating well. Tolerating oral intake and voiding independently. He would like to go home today Review of Systems Review of Systems: All systems reviewed & are unremarkable except as noted in HPI and below Exam Narrative: AOx4 Small amount of serosanguinous drainage on dressing Full strength in lower extremities Sensation intact to light touch Objective Data Vital Signs Vital Signs: Vital Signs - 24 hr 06/21/25 13:15 06/21/25 13:45 06/21/25 14:27 Temperature 96 F L 97 F L Pulse Rate 98 99 Respiratory Rate 13 13 Blood Pressure 145/76 H 135/78 Pulse Oximetry 98 100 Oxygen Delivery Room Air 06/21/25 15:09 06/21/25 19:15 06/21/25 21:06 Temperature 97.5 F L Pulse Rate 94 86 Respiratory Rate 18 Blood Pressure 154/83 H Pulse Oximetry 97 Oxygen Delivery Room Air 06/21/25 21:06 06/21/25 23:08 06/22/25 03:15 Temperature 97.2 F L 97.6 F Pulse Rate 77 77 Respiratory Rate 18 18 Blood Pressure 135/71 131/54 L Pulse Oximetry 98 95 Oxygen Delivery Room Air 06/22/25 06:05 06/22/25 08:32 06/22/25 08:35 Temperature 97.4 F L Pulse Rate 74 80 Respiratory Rate 18 Blood Pressure 124/64 Pulse Oximetry 96 Oxygen Delivery Room Air 06/22/25 10:35 Temperature 97.1 F L Pulse Rate 79 Respiratory Rate 18 Blood Pressure 117/75 Pulse Oximetry 98 Oxygen Delivery Intake/Output Intake/Output: Intake & Output 06/19/25 06/20/25 06/21/25 06/22/25 23:59 23:59 23:59 23:59 Intake Total 1640 980 Output Total 3000 1020 Balance -1360 -40 Meds/Results Medications: Active Medications Generic Name Dose Route Start Last Admin Trade Name Freq PRN Reason Stop Dose Admin Hydrocodone Bitart/Acetaminophen 1 tab 06/21/25 12:15 Hydrocodone/Acetaminophen (*Crx) 5-325 Mg Tablet PO Q4H PRN Mild Pain (1-3) Hydrocodone Bitart/Acetaminophen 1 tab 06/21/25 12:15 06/22/25 11:41 Hydrocodone/Acetaminophen (*Crx) 10-325 Mg Tablet PO 1 tab Q4H PRN Administration Moderate Pain (4-6) Al Hydrox/Mg Hydrox/Simethicone 20 ml 06/21/25 12:15 Mag Hydrox/Al Hydrox/Simeth 30 Ml Udc PO Q4H PRN Indigestion/Heartburn Bisacodyl 10 mg 06/21/25 12:15 Bisacodyl 10 Mg Suppository RECTAL DAILY PRN Constipation Carvedilol 12.5 mg 06/21/25 21:00 06/22/25 08:32 Carvedilol 12.5 Mg Tablet PO 12.5 mg Q12H EVERETT Administration Cyclobenzaprine HCl 10 mg 06/21/25 12:15 06/22/25 08:32 Cyclobenzaprine Hcl 10 Mg Tablet PO 10 mg TID PRN Administration Muscle Spasms Docusate Sodium 100 mg 06/21/25 21:00 06/22/25 08:32 Docusate Sodium 100 Mg Capsule PO 100 mg Q12HR EVERETT Administration Fish Oil 3 gm 06/22/25 09:00 06/22/25 08:32 [place] 3 Polyunsat Fatty Acids 1 Gm Cap PO 3 gm DAILY EVERETT Administration Glimepiride 2 mg 06/22/25 09:00 06/22/25 08:32 Glimepiride 2 Mg Tablet PO 2 mg QAM EVERETT Administration Hydromorphone HCl 0.5 mg 06/21/25 12:15 06/22/25 03:30 Hydromorphone Hcl Inj (*Crx) 1 Mg/Ml Syr IV PUSH 0.5 mg Q2H PRN Administration Pain Rated 7-10 Cefazolin Sodium 1 gm/ Sodium 50 mls @ 100 mls/hr 06/21/25 15:00 06/22/25 06:49 Chloride IVPB Infused Q8H [facility]ERETT Infusion Lisinopril 20 mg 06/21/25 21:00 06/22/25 08:32 Lisinopril 20 Mg Tablet PO 20 mg Q12HR [place]ERETT Administration Multivitamins Therapeutic 1 tablet 06/22/25 09:00 06/22/25 08:32 Multivitamins Therapeutic Tab (*Bkc) PO 1 tablet DAILY EVERETT Administration Ondansetron HCl 4 mg 06/21/25 12:15 Ondansetron Inj 4 Mg/2 Ml Vial IV PUSH Q8H PRN Nausea And Vomiting Rosuvastatin Calcium 40 mg 06/22/25 09:00 06/22/25 08:32 Rosuvastatin 20 Mg Tablet PO 40 mg DAILY EVERETT Administration Senna/Docusate Sodium 1 tab 06/21/25 12:15 Senna/Docusate Sodium Tablet PO HS PRN Constipation Radiology Results: ITS Impressions Fluoroscopy 06/21/25 13:45 IMPRESSION: Fluoroscopy used during L4-5 posterior lumbar interbody fusion. Labs Labs: Laboratory Results - last 24 hr 06/21/25 10:24 POC Capillary Glucose 252 H
== END 2025-06-22 13:45 | disposition home or self-care (01) ==
LOC: ANHSURGERY 06:00 → ANH3MEDSUR 12:23
PROVIDERS: PCP Family Medicine; Visit Provider Neurological Surgery
PROC: (CPT 22612; principal; 2025-06-21 07:30)
DX: M43.16 Spondylolisthesis, lumbar region (principal); M47.816 Spondylosis without myelopathy or radiculopathy, lumbar region; E11.9 Type 2 diabetes mellitus without complications; Z72.0 Tobacco use
CPT/HCPCS: 22630; 22853; 20936; 22840; 82948; 97161; 97165; 97530; 97535; 99199; J0690; A9270; C1713; J0360; J1171; J2003; J2004; J2250; J2405; J2704; J3010; J7120

== ENCOUNTER 2025-07-21 09:08 | Outpatient (CLI) | payer OTHER, SELFPAY ==
--- NOTE | ~2025-07-21 | XR_ITS ---
EXAMINATION: XR knee LT min 4V, 07/21/2025 9:34 CDT HISTORY: M25.562 - Pain in left knee COMPARISON: No comparisons available. Findings: Probable bone infarct in the distal femur measures 2 x 1.5 cm, no fracture or dislocation. Moderate tricompartmental degenerative changes Soft tissues unremarkable. Impression: No acute fracture or malalignment. Reviewed, dictated and finalized at location P. Impression: No acute fracture or malalignment.
--- NOTE | ~2025-07-21 | XR_ITS ---
XR lumbar spine 2-3V Indication: Z98.1 - Arthrodesis status Comparison: None Findings: Posterior fixation of L4 on L5 with disc prosthesis, the hardware is intact. No acute fracture or subluxation. Moderate to severe loss of the remaining disc height throughout. Soft tissues unremarkable Impression: No acute abnormality. Reviewed, dictated and finalized at location P. Impression: No acute abnormality.
--- OUTSIDE RECORDS SUMMARY | 2025-07-21 09:36 | XMS_ITS | Clinical Summary ---
Author Organization [facility] Address [address] [place] [id number] Phone Care Team Providers Care Retinal Surgeon Name Role Phone Jean Paul Mcdaniel MD Primary Care Provider [phone] Allergies Active Allergy Reactions Criticality Noted Date [...] Vaccine (#1) 2025 Insurance [employer] Care Teams Retinal Surgeon Relationship Specialty Start Date End Date Jean Paul Mcdaniel MD [address] [facility] [address] [place] [address] PCP - General Internal Medicine 12/18/21
--- OUTSIDE RECORDS SUMMARY | 2025-07-21 09:36 | XMS_ITS | Clinical Summary ---
Author Organization [facility] Address [address] [place] [id number] Care Team Providers Care Head Of Research & Insights Name Role Phone Jean Paul Mcdaniel MD Primary Care Provider Social History Tobacco Use Types Packs/Day Years [...] Annual Medicare Wellness Visit 2023 COVID-19 Vaccine (1 - 2023-2 5 season) 2025 Influenza Adult (#1) 2025 RSV Immunization or 60+ Years (1 - [...] complete this topic Insurance [employer] Care Teams Head Of Research & Insights Relationship Specialty Start Date End Date Jean Paul Mcdaniel MD [address] [place] [address] PCP - General FAMILY PRACTICE 06/17/24
== END 2025-07-21 09:09 | disposition home or self-care (01) ==
PROVIDERS: PCP Physician Assistant; Visit Provider Nurse Practitioner Adult Health
DX: M25.562 Pain in left knee (principal); M51.369 Other intervertebral disc degeneration, lumbar region without mention of lumbar back pain or lower extremity pain; Z98.1 Arthrodesis status
CPT/HCPCS: 72100; 73564

== ENCOUNTER 2025-09-07 08:44 | Outpatient (CLI) | payer OTHER, SELFPAY ==
--- NOTE | ~2025-09-07 | MR_ITS ---
EXAMINATION: MR knee LT wo con DATE: 09/07/2025 09:32 INDICATION: Left lower leg injury TECHNIQUE: Magnetic resonance imaging (MRI) of the left knee was performed without intravenous contrast. Sequences included coronal PD-weighted FSE, coronal PD-weighted FS FSE, sagittal T2-weighted FSE, sagittal PD-weighted FS FSE and axial PD weighted fat saturated FSE. COMPARISON: None. FINDINGS: Medial compartment: Complex tear of the body and posterior horn of the medial meniscus with medial extrusion macerated appearance of the meniscal body. Partial-thickness chondral ulceration involving up to 50% of the cartilage thickness and with chondral surface irregularity along the medial two thirds of the anterior to central weightbearing medial femoral condyle. Additional mild partial-thickness chondral ulceration along the central to medial aspect of the medial tibial plateau. Lateral compartment: Lateral meniscus is normal. Mild partial-thickness cartilage loss with smooth chondral surface along the lateral aspect of the posterior weightbearing lateral femoral condyle. Small region of partial-thickness chondral fissuring at the posterior medial aspect of the lateral tibial plateau with underlying tiny focus of subarticular edema-like signal change. Patellofemoral compartment: Shallow chondral fissuring along the lateral patellar facet. Trochlear cartilage is normal. Ligaments and tendons: Anterior and posterior cruciate ligaments are normal. The medial collateral ligament and fibular collateral ligament complex are normal. Mild tendinopathy of the popliteus tendon. Additional mild patellar tendinopathy with longitudinal split tear extending craniocaudally along the medial side of the tendon. There is also minimal distal quadriceps tendinopathy. The visualized medial and lateral hamstring tendons as well as the iliotibial band are normal. Fluid: Small left knee joint effusion. Moderate-sized Beach's cyst extending 6.3 cm craniocaudally and measuring up to 1.8 x 0.8 cm in maximal transaxial dimensions. No loose osteochondral bodies identified. Osseous/other: There is a peripheral serpiginous low signal intensity sclerotic margin to a small bone infarct in the distal femoral diaphysis. No fracture or other pathologic marrow replacing process. IMPRESSION: 1. Complex medial meniscal tear. 2. 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 3. Small left knee joint effusion and moderate-sized Beach's cyst. 4. Mild tendinopathy and longitudinal split tear of the patellar tendon. Reviewed, dictated and finalized at location A. ER [facility] T[facility]ER
== END 2025-09-07 08:45 | disposition home or self-care (01) ==
PROVIDERS: PCP Family Medicine; Visit Provider Orthopaedic Surgery
DX: S83.232A Complex tear of medial meniscus, current injury, left knee, initial encounter (principal); S76.112A Strain of left quadriceps muscle, fascia and tendon, initial encounter; X58.XXXA Exposure to other specified factors, initial encounter; M17.12 Unilateral primary osteoarthritis, left knee; M25.462 Effusion, left knee; M76.52 Patellar tendinitis, left knee
CPT/HCPCS: 73721